=== PATIENT | male | born 1960 | race Hispanic/Latino ===

== ENCOUNTER 2018-01-01 06:19 | Emergency (ER) | payer OTHER, SELFPAY ==
--- NOTE | 2018-01-01 08:37 | RAD ---
RIGHT KNEE 4 VIEWS: History Right knee injury. FINDINGS: Mild tricompartmental osteophytosis. Joint spaces are preserved. No acute fracture, dislocation, or fluid distention of the suprapatellar bursa. IMPRESSION: No acute osseous abnormalities are demonstrated. POS: TPC
== END 2018-01-01 06:53 | disposition home or self-care (01) ==
LOC: ERS 06:19
DX: M25.561 Pain in right knee (principal); I10 Essential (primary) hypertension; Z87.891 Personal history of nicotine dependence; Z79.899 Other long term (current) drug therapy; X50.1XXA Overexertion from prolonged static or awkward postures, initial encounter

== ENCOUNTER 2019-01-15 10:56 | Observation (INO) | payer BC ==
[2019-01-15] MEDS ORDERED: Aspirin Chewable 81 MG TAB ONE (11:20)
[2019-01-15] MEDS ORDERED: Nitroglycerin 2% Ointment 1 INCH/1 GM Packet ONE (11:21)
[2019-01-15 11:28] LABS: #Basophils 0.1 thou/uL (0.0-0.2); #Eosinphils 0.1 thou/uL (0.0-0.7); #Lymphocytes 3.3 thou/uL (1.20-3.40); #Monocytes 0.6 thou/uL (0.11-0.59); #Neutrophils 3.9 thou/uL (1.40-6.50); %Eosinophils 1.9 % (0.0-10.0); %Lymphocytes 41.2 % (21.0-51.0); %Monocytes 6.9 % (0.0-10.0); Hemoglobin 15.8 g/dL (14.0-18.0); Mean Corpuscular Hemoglobin 31.7 pg (27.0-31.0); Mean Corpuscular Volume 93.1 fL (78.0-98.0); Mean Platelet Volume 8.1 fL (7.4-10.4); Platelet Count 265 thou/uL (130-400); RBC Distribution Width 11.5 % (11.5-14.5)
--- NOTE | 2019-01-15 11:48 | RAD ---
PORTABLE CHEST 1 VIEW: Date: 01/15/19 Time: 1119 hours HISTORY: Chest pain. FINDINGS: The heart size is normal. The lungs are expanded without focal areas of consolidation, pneumothoraces , or pleural effusions. IMPRESSION: No radiographic evidence of acute cardiopulmonary process. POS: TPC
[2019-01-15 11:52] LABS: ALT (SGPT) 36 U/L (8-55); AST (SGOT) 24 U/L (5-34); Albumin 5.2 g/dL (3.5-5.0); Alkaline Phosphatase 87 U/L (40-110); Anion Gap 14 mmol/L (10-20); BUN (Urea Nitrogen) 9 mg/dL (8.4-25.7); Calc. Creatinine Clearance 0 mL/min (70-130); Calcium 10.1 mg/dL (7.8-10.44); Carbon Dioxide 27 mmol/L (22-29); Chloride 101 mmol/L (98-107); Estimated GFR-MDRD 76; Globulin 3.4 g/dL (2.4-3.5); Glucose 100 mg/dL (70-105); Protein, Total 8.6 g/dL (6.0-8.3); Sodium 138 mmol/L (136-145)
[2019-01-15 13:47] VITALS: BMI 32.1
[2019-01-15 18:58] LABS: Troponin I Less than 0.010 ng/mL (< 0.028)
--- NOTE | 2019-01-15 21:31 | HP ---
CHIEF COMPLAINT: Chest pain. HISTORY OF PRESENT ILLNESS: This is a 58-year-old gentleman, who has a history of CAD, status post CA in 1991, has been on statins and high blood pressure medications, presented to the ER today with complaints of chest pain midsternal to left side and radiating to the neck and jaw. On arrival to ER, the patient had nitroglycerin given, serial cardiac enzymes were ordered. EKG was normal. Cardiac enzymes were normal. The patient had been admitted as per the recommendations of ER into telemetry and rule out chest pain protocol. PAST MEDICAL HISTORY: 1. CAD. 2. Hypertension. 3. History of CA. HOME MEDICATIONS: 1. Atorvastatin 40 mg p.o. daily. 2. Esomeprazole 20 mg p.o. daily. 3. Lisinopril 20 mg p.o. daily. PAST SURGICAL HISTORY: Negative. ALLERGIES: NKDA. REVIEW OF SYSTEMS: CARDIOVASCULAR: As above. HEAD AND ENT: Negative. MUSCULOSKELETAL: Negative. GASTROINTESTINAL: Negative. NEUROLOGIC: Negative. PULMONARY: Negative. All other systems reviewed and negative. SOCIAL HISTORY: The patient does not smoke or drink alcohol. Works at a facility. FAMILY HISTORY: Noncontributory. PHYSICAL EXAMINATION: GENERAL: The patient is alert, oriented x3, not in acute distress. VITAL SIGNS: Stable, afebrile. HEENT: [place]. Atraumatic and normocephalic. Dry mucous membranes. NECK: Supple. No lymphadenopathy. No JVD. LUNGS: Clear to auscultation bilaterally. CVS: S1 and S2 heard. ABDOMEN: Soft. Bowel sounds present. Nontender and nondistended. EXTREMITIES: No cyanosis, calf tenderness, or edema. SPEAR FISHER: Nonfocal. LABORATORY DATA: Lab work performed so far reveals EKG normal sinus rhythm. WBC 8.0, hemoglobin 15.8, hematocrit 46.5, platelets 265. Chemistry panel shows sodium 138, potassium 4.0, BUN 9, creatinine 1.0, albumin 5.2. Troponin 0.010. BNP is 17. IMPRESSION: 1. Chest pain. Rule out myocardial infarction. The patient has significant coronary artery disease, status post myocardial infarction in the past. 2. Hypertension, on medications. 3. Mild obesity. PLAN: 1. The patient will be hospitalized to CDU. 2. Telemetry. 3. Serial cardiac enzymes. 4. Lab work will be ordered including echocardiogram. 5. Cardiology consultation as the patient already had history of CAD and CA in the past. It is unclear if the patient underwent angiogram in the past. Further recommendations pending labs and further clinical course. Job ID: [id number]
[2019-01-16] MEDS ORDERED: Multivit, Therapeutic 1 TAB PO SCH (09:00)
[2019-01-16] MEDS ORDERED: Lisinopril 20 MG TAB PO SCH (09:00)
--- NOTE | 2019-01-16 14:29 | EKG ---
Test Reason : Blood Pressure : / mmHG Vent. Rate : 063 BPM Atrial Rate : 063 BPM P-R Int : 144 ms QRS Dur : 090 ms QT Int : 380 ms P-R-T Axes : 026 007 019 degrees QTc Int : 388 ms Normal sinus rhythm Normal ECG Q wave III Confirmed by JAMIE LAM, JESSE ([id number]), photo editor RAMON VASQUEZ ([id number]) on 01/16/2019 2:29:20 PM Referred By: Confirmed By:JESSE AYALA MD
--- NOTE | 2019-01-16 14:32 | PDOC.HOSPP ---
- Subjective Encounter Date: 01/16/19 Encounter Time: 14:00 Subjective: No complaint.. - Objective Vital Signs & Weight: Vital Signs (12 hours) Temp Pulse Resp BP BP Pulse Ox 01/16/19 13:23 138/71 01/16/19 13:20 98.4 F 89 16 138/71 96 01/16/19 07:26 98.0 F 67 16 147/80 H 95 01/16/19 02:56 98.4 F 70 14 139/77 94 L Weight Weight 202 lb 8 oz I&O: 01/15/19 01/16/19 01/17/19 06:59 06:59 06:59 Intake Total 960 Balance 960 Result Diagrams: 01/15/19 11:15 01/15/19 11:15 Hospitalist ROS - Medication Medications: Active Medications Generic Name Dose Route Start Last Admin Trade Name Freq PRN Reason Stop Dose Admin Lisinopril 20 mg 01/16/19 09:00 01/16/19 13:23 Zestril PO 20 mg DAILY SUZANNA Administration Multivitamins 1 tab 01/16/19 09:00 01/16/19 13:23 Theragran PO 1 tab DAILY SUZANNA Administration Pantoprazole Sodium 40 mg 01/16/19 09:00 01/16/19 13:23 Protonix PO 40 mg DAILY SUZANNA Administration - Exam General Appearance: NAD, awake alert Neck: no JVD Heart: RRR Respiratory: CTAB Gastrointestinal: soft, non-tender Extremities: no edema Neurological: no focal deficits Psychiatric: normal affect Hosp A/P (1) Chest pain Code(s): R07.9 - CHEST PAIN, UNSPECIFIED Status: Acute Plan: No chest pain at this time.. f/u echo, stress test. (2) CAD (coronary artery disease) Code(s): I25.10 - ATHSCL HEART DISEASE OF [place] CORONARY ARTERY W/O ANG PCTRS Status: Chronic Plan: by history.. (3) HTN (hypertension) Code(s): I10 - ESSENTIAL (PRIMARY) HYPERTENSION Status: Acute Plan: BP satisfactory.. - Plan f/u echo, stress test...
[2019-01-16 15:42] VITALS: BP 150/84; TEMP 98.2
--- NOTE | 2019-01-16 15:53 | NM ---
NUCLEAR MEDICINE CARDIAC MYOCARDIAL PERFUSION SPECT EJECTION FRACTION STUDY WALL MOTION CINE: DATE: 01/16/2019 HISTORY: 58-year-old male with coronary artery disease, previous myocardial infarction, hypertension, and dysl ipidemia presents with acute chest pain. TECHNIQUE: Number of days: 1 Rest study: Technetium 99m-sestamibi (Cardiolite) dose: 11.0 mCi Pharmacologic stress: Adenosine dose: 51.5 mg Stress study: Technetium 99m-sestamibi (Cardiolite) dose: 30.0 mCi FINDINGS: CARDIAC (MYOCARDIAL PERFUSION) SPECT Distribution of sestamibi is homogeneous throughout the left ventricle, with no fixed or reversible m yocardial perfusion defects. EJECTION FRACTION STUDY Left ventricular EF = 62 % WALL MOTION CINE The left ventricular wall motion is normal. There is normal systolic wall thickening. IMPRESSION: Normal.
--- NOTE | 2019-01-16 16:31 | PDOC.EVN ---
Event Note - Event Note Event Note: Discharge Summary: Admitting date: 01/15/2019 Discharge date: . Diagnosis: Chest, atypical CAD Hypertension Medical Affairs Leader: Dr. Gonzalez, [facility]. Prcedure: EKG, Stress Test, Echocardiogram For discharge medications, see discharge medication reconciliation sheet. For today physical report to progress note section. To follow up with PCP.
[2019-01-16] MEDS ORDERED: ADENOSINE 60 MG/20 ML VIAL ONE (19:55)
[2019-01-16] MEDS ORDERED: Metoprolol Tartrate 25 MG TAB PO SCH (21:00)
[2019-01-16] MEDS ORDERED: Atorvastatin Calcium 40 MG TAB PO SCH (21:00)
[2019-01-17] MEDS ORDERED: Aspirin 81 mg Enteric Coated Tablet PO SCH (09:00)
--- NOTE | 2019-01-18 10:46 | STRESS ---
Acquisition Time: 2019-01-16 11:48:57 Total Exercise Time: 00:04:00 Test Indications: CHEST PAIN Medications: Protocol: ADENOSINE Max HR: 107 BPM 66% of Pred: 160 BPM Max BP: 144/060 mmHG Max Work Load: 1.0 METS RESTING ECG: NORMAL SINUS RHYTHM AT 67 BPM SYMPTOMS: DYSPNEA NORMAL BP RESPONSE ECTOPY: NONE ECG STRESS: NO SIGNIFICANT CHANGES INTERPRETATION: AWAIT NUCLEAR IMAGES FOR DEFINITIVE DIAGNOSIS Confirmed by NINA ABEBE ([id number]), city editor DAVID FITZPATRICK ([id number]) on 01/18/2019 10:45:57 AM Referred By: MD Marylu WOODY Confirmed By:NINA ABEBE
== END 2019-01-16 17:12 | disposition home or self-care (01) ==
LOC: ERS 10:56 → 2SW 13:41
PROVIDERS: ADMIT Internal Medicine; ATTEND Internal Medicine
DX: R07.89 Other chest pain (principal); I25.10 Atherosclerotic heart disease of native coronary artery without angina pectoris; I25.2 Old myocardial infarction; I10 Essential (primary) hypertension; E66.9 Obesity, unspecified; Z68.31 Body mass index [BMI] 31.0-31.9, adult; Z87.891 Personal history of nicotine dependence; Z79.899 Other long term (current) drug therapy
CPT/HCPCS: 36415; 71045; 78452; 80053; 83880; 84484; 85025; 93005; 93017; 93306; A9500; G0378; J0153